=== PATIENT | female | born 1985 | race American Indian/Alaskan Native ===

== ENCOUNTER 2020-06-29 12:39 | Emergency (ER) | payer SELFPAY ==
[2020-06-29 13:11] VITALS: BP 124/73
--- NOTE | 2020-06-29 14:19 | Emergency Department Report ---
ED General Adult HPI - General Chief complaint: Vaginal Bleeding Stated complaint: ABD PAIN/RT LEG PAIN Time Seen by Provider: 06/29/20 13:17 Source: patient Mode of arrival: Ambulatory Limitations: No Limitations - History of Present Illness Initial comments: pt is a 34 yo female who presents to the ED with c/o vaginal bleeding for three weeks. she states she has a hx of irregular menstrual cycles. 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 she denies ever having an abnormal pap smear. she denies any fever, abd pain, back pain, n/v/d, dysuria, abnormal vaginal discharge. she states she has also been having right sided calf pain for a few d ays described as a throbbing. she denies any fall or injury. she denies any CP, SOB, leg swelling, numbness or weakness. no pmhx. no allergies to meds. she endorses tobacco use. - Related Data Previous Rx's Medication Instructions Recorded Last Taken Type Naproxen [EC-Naprosyn] 500 mg PO BID PRN #20 tablet. 06/29/20 Unknown Rx medroxyPROGESTERone ACETATE 10 mg PO QDAY #10 tablet 06/29/20 Unknown Rx [Provera] methOCARBAMOL [Robaxin TAB] 500 mg PO BID PRN #14 tab 06/29/20 Unknown Rx Allergies Allergy/AdvReac Type Severity Reaction Status Date / Time No Known Allergies Allergy Unverified 06/29/20 13:11 ED Review of Systems ROS: Stated complaint: ABD PAIN/RT LEG PAIN Other details as noted in HPI Comment: All other systems reviewed and negative ED Past Medical Hx - Past Medical History Previous Medical History?: No - Surgical History Past Surgical History?: No - Medications Home Medications: Home Medications Medication Instructions Recorded Confirmed Last Taken Type Naproxen [EC-Naprosyn] 500 mg PO BID PRN #20 tablet. 06/29/20 Unknown Rx medroxyPROGESTERone ACETATE 10 mg PO QDAY #10 tablet 06/29/20 Unknown Rx [Provera] methOCARBAMOL [Robaxin TAB] 500 mg PO BID PRN #14 tab 06/29/20 Unknown Rx ED Physical Exam - General Limitations: No Limitations General appearance: alert, in no apparent distress - Head Head exam: Present: atraumatic, normocephalic - Eye Eye exam: Present: normal appearance - ENT ENT exam: Present: mucous membranes moist - Respiratory Respiratory exam: Present: normal lung sounds bilaterally. Absent: respiratory distress, wheezes, rales, rhonchi, stridor, chest wall tenderness, accessory muscle use, decreased breath sounds, prolonged expiratory - Cardiovascular Cardiovascular Exam: Present: regular rate, normal rhythm, normal heart sounds. Absent: systolic murmur, diastolic murmur, rubs, gallop - GI/Abdominal GI/Abdominal exam: Present: soft, normal bowel sounds. Absent: distended, tend erness, guarding, rebound, rigid - Extremities Exam Extremities exam: Present: normal inspection, full ROM, normal capillary refill. Absent: tenderness, pedal edema, joint swelling, calf tenderness - Neurological Exam Neurological exam: Present: alert, oriented X3 - Psychiatric Psychiatric exam: Present: normal affect, normal mood - Skin Skin exam: Present: warm, dry, intact ED Course Vital Signs 06/29/20 13:10 Temperature 98.4 F Pulse Rate 80 Respiratory 16 Rate Blood Pressure 124/73 [Right] O2 Sat by Pulse 98 Oximetry ED Medical Decision Making - Lab Data Result diagrams: 06/29/20 14:34 06/29/20 14:34 Lab Results 06/29/20 06/29/20 06/29/20 Range/Units 14:34 14:34 14:34 WBC 10.5 (4.5-11.0) K/mm3 RBC 4.23 (3.65-5.03) M/mm3 Hgb 13.0 (10.1-14.3) gm/dl Hct 38.2 (30.3-42.9) % MCV 90 (79-97) fl MCH 31 (28-32) pg MCHC 34 (30-34) % RDW 13.1 L (13.2-15.2) % Plt Count 266 (140-440) K/mm3 Lymph % (Auto) 28.1 (13.4-35.0) % Peach % (Auto) 5.8 (0.0-7.3) % Eos % (Auto) 3.5 (0.0-4.3) % Baso % (Auto) 0.8 (0.0-1.8) % Lymph # (Auto) 3.0 (1.2-5.4) K/mm3 Peach # (Auto) 0.6 (0.0-0.8) K/mm3 Eos # (Auto) 0.4 (0.0-0.4) K/mm3 Baso # (Auto) 0.1 (0.0-0.1) K/mm3 Seg Neutrophils % 61.8 (40.0-70.0) % Seg Neutrophils # 6.5 (1.8-7.7) K/mm3 Sodium 141 (137-145) mmol/L Potassium 4.9 (3.6-5.0) mmol/L Chloride 104.7 (98-107) mmol/L Carbon Dioxide 31 H (22-30) mmol/L Anion Gap 10 mmol/L BUN 8 (7-17) mg/dL Creatinine 0.7 (0.6-1.2) mg/dL Estimated GFR > 60 ml/min BUN/Creatinine Ratio 11 % Glucose 95 (65-100) mg/dL Calcium 9.3 (8.4-10.2) mg/dL Total Bilirubin 0.20 (0.1-1.2) mg/dL AST 16 (5-40) units/L ALT 19 (7-56) units/L Alkaline Phosphatase 76 (35-129) units/L Total Protein 6.8 (6.3-8.2) g/dL Albumin 4.4 (3.9-5) g/dL Albumin/Globulin Ratio 1.8 % HCG, Quant < 2 (0-4) mIU/mL - Radiology Data Radiology results: report reviewed Ordering Physician: JEFFERY ROBERSON Date of Service: 06/29/20 Procedure(s): VL venous duplex LE RT Accession Number(s): [id number] cc: JEFFERY ROBERSON DUPLEX DOPPLER LOWER EXTREMITY VEINS, RIGHT INDICATION / CLINICAL INFORMATION: right calf pain. TECHNIQUE: Duplex doppler imaging was performed through the veins of the right lower extremity using venous compression and other maneuvers. COMPARISON: None available. FINDINGS: RIGHT COMMON FEMORAL VEIN: Negative. RIGHT FEMORAL VEIN: Negative. RIGHT POPLITEAL VEIN: Negative. RIGHT CALF VEINS: Negative. ADDITIONAL FINDINGS: None. IMPRESSION: 1. No sonographic evidence for DVT in the right lower extremity. Signer Name: Rohit Limon MD Signed: 06/29/2020 2:37 PM Workstation Name: [id number] Transcribed By: FATMATA Dictated By: Rohit Limon MD Electronically Authenticated By: Rohit Limon MD Signed Date/Time: 06/29/201436 DD/ 36 TD/TT: Cancel - Medical Decision Making pt is a 34 yo female who presents to the ED with c/o vaginal bleeding for three weeks. she states she has a hx of irregular menstrual cycles. 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 she denies ever having an abnormal pap smear. she denies any fever, abd pain, back pain, n/v/d, dysuria, abnormal vaginal discharge. she states she has also been having right sided calf pain for a few days described as a throbbing. she denies any fall or injury. she denies any CP, SOB, leg swelling, numbness or weakness. no pmhx. no allergies to meds. she endorses tobacco use. Vitals are normal. Labs are normal. H&H is normal. hCG quant is less than 2. doppler US RLE: 1. No sonographic evidence for DVT in the right lower extremity. Discussed all results with patient answered q uestions. Discussed the importance of [facility] follow-up and primary care follow- up. Patient's only contraindication to Provera is tobacco use, I discussed that tobacco use and Provera together puts you at a greater risk for VTE, patient is aware of the risk and would like to continue with Provera prescription. Advised patient please take medication as prescribed. do not drive or operate heavy machinery while taking muscle relaxer robaxin. do not smoke tobacco while taking this medication. follow up with a primary care doctor. follow up with an asbestos pipe supervisor. return to the emergency room for any new or worsening symptoms. Critical care attestation.: If time is entered above; I have spent that time in minutes in the direct care of this critically ill patient, excluding procedure time. ED Disposition Clinical Impression: Right calf pain, Abnormal uterine bleeding (AUB) Disposition: TO HOME OR SELFCARE Is pt being admited?: No Does the pt Need Aspirin: No Condition: Stable Instructions: Abnormal Uterine Bleeding, Leg Cramps Additional Instructions: please take medication as prescribed. do not drive or operate heavy machinery while taking muscle relaxer robaxin. do not smoke tobacco while taking this medication. follow up with a primary care doctor. follow up with an asbestos pipe supervisor. return to the emergency room for any new or worsening symptoms. Prescriptions: Naproxen [EC-Naprosyn] 500 mg PO BID PRN #20 tablet. PRN Reason: pain medroxyPROGESTERone ACETATE [Provera] 10 mg PO QDAY #10 tablet methOCARBAMOL [Robaxin TAB] 500 mg PO BID PRN #14 tab PRN Reason: pain Referrals: PRIMARY CAREMD [Primary Care Provider] - 2-3 Days SERGIO SANTOS MD [Staff Physician] - 2-3 Days [facility] [Provider Group] - 2-3 Days RENETTA COOK MD [Staff Physician] - 2-3 Days Time of Disposition: 16:07 Print Language: ITALIAN
--- NOTE | 2020-06-29 14:41 | Vascular Lab Report ---
DUPLEX DOPPLER LOWER EXTREMITY VEINS, RIGHT INDICATION / CLINICAL INFORMATION: right calf pain. TECHNIQUE: Duplex doppler imaging was performed through the veins of the right lower extremity using venous comp ression and other maneuvers. COMPARISON: None available. FINDINGS: RIGHT COMMON FEMORAL VEIN: Negative. RIGHT FEMORAL VEIN: Negative. RIGHT POPLITEAL VEIN: Negative. RIGHT CALF VEINS: Negative. ADDITIONAL FINDINGS: None. IMPRESSION: 1. No sonographic evidence for DVT in the right lower extremity. Signer Name: Rohit Limon MD Signed: 06/29/2020 2:37 PM Workstation Name: [id number]
[2020-06-29 14:55] LABS: Basophils # (Auto) 0.1 K/mm3 (0.0-0.1); Basophils % (Auto) 0.8 % (0.0-1.8); Eosinophils # (Auto) 0.4 K/mm3 (0.0-0.4); Eosinophils % (Auto) 3.5 % (0.0-4.3); Hematocrit 38.2 % (30.3-42.9); Lymphocytes % (Auto) 28.1 % (13.4-35.0); Mean Corpuscular HGB Conc 34 % (30-34); Mean Corpuscular Volume 90 fl (79-97); Monocytes # (Auto) 0.6 K/mm3 (0.0-0.8); Monocytes % (Auto) 5.8 % (0.0-7.3); Platelet Count 266 K/mm3 (140-440); Red Blood Count 4.23 M/mm3 (3.65-5.03); Red Cell Distribution Width 13.1 % (13.2-15.2)
[2020-06-29 15:24] LABS: Alanine Aminotransferase 19 units/L (7-56); Albumin 4.4 g/dL (3.9-5); Blood Urea Nitrogen 8 mg/dL (7-17); Calcium 9.3 mg/dL (8.4-10.2); Hemolysis Index 10
[2020-06-29 15:37] LABS: BUN/Creatinine Ratio 11
== END 2020-06-29 16:21 | disposition home or self-care (01) ==
LOC: ED 12:39
DX: N93.9 Abnormal uterine and vaginal bleeding, unspecified (principal); M79.661 Pain in right lower leg; Z79.899 Other long term (current) drug therapy
CPT/HCPCS: 36415; 80053; 84702; 85025

== ENCOUNTER 2020-08-23 11:14 | Emergency (ER) | payer SELFPAY ==
[2020-08-23 12:03] VITALS: BP 136/88
[2020-08-23] MEDS ORDERED: ACETAMINOPHEN 325 MG TAB PO ONE (12:48)
--- NOTE | 2020-08-23 12:48 | Emergency Department Report ---
ED Extremity Problem HPI - General Chief complaint: Extremity Injury, Lower Stated complaint: LEG RT PAINS Time Seen by Provider: 08/23/20 12:24 Source: patient Mode of arrival: Ambulatory Limitations: No Limitations - History of Present Illness Initial comments: 34-year-old obese female with no significant past history presents to the ER today with complaints of right calf pain, and right upper thigh/right hip pain. Patient states that she has been having right calf pain on and off for few months but has gotten to the point where it is preventing her from sleeping. She describes as a throbbing pain and she states that lately has been bothering her when she walks. She states the right hip/right upper thigh pain started yesterday. She denies any injury to her calf pain for started a few months ago. She states that she has been exercising for the past month but does not recall any specific injury to her calf or hip area. She denies any associated swelling, bruising or erythema. She denies any back pain, tingling, weakness or numbness. She states that she has not seen anybody for her calf pain since it started. She reports no associated chest pain or shortness of breath. She reports a history of tobacco use. She states she used to be on control but is been a couple months since she has taken any. She denies any history of DVT or PE in the past. MD Complaint: extremity pain -: days(s), month(s) - Related Data Previous Rx's Medication Instructions Recorded Last Taken Type medroxyPROGESTERone ACETATE 10 mg PO QDAY #10 tablet 06/29/20 Unknown Rx [Provera] Naproxen [EC-Naprosyn] 500 mg PO BID PRN #20 tablet. 08/23/20 Unknown Rx methOCARBAMOL [Robaxin TAB] 500 mg PO BID PRN #14 tab 08/23/20 Unknown Rx Allergies Allergy/AdvReac Type Severity Reaction Status Date / Time No Known Allergies Allergy Unverified 06/29/20 13:11 ED Review of Systems ROS: Stated complaint: LEG RT PAINS Other details as noted in HPI Comment: All other systems reviewed and negative Constitutional: denies: chills, fever Eyes: denies: eye pain, eye discharge, vision change ENT: denies: ear pain, throat pain Respiratory: denies: cough, shortness of breath, wheezing Cardiovascular: denies: chest pain, palpitations Gastrointestinal: denies: abdominal pain, nausea, vomiting, diarrhea, constipation, hematemesis, hematochezia Musculoskeletal: arthralgia, myalgia. denies: back pain, joint swelling Neurological: denies: headache, weakness, numbness, paresthesias, confusion, abnormal gait Psychiatric: denies: anxiety, depression Hematological/Lymphatic: denies: easy bleeding, easy bruising ED Past Medical Hx - Past Medical History Previous Medical History?: No - Surgical History Past Surgical History?: No - Social History Smoking Status: Never Smoker Substance Use Type: None - Medications Home Medications: Home Medications Medication Instructions Recorded Confirmed Last Taken Type medroxyPROGESTERone ACETATE 10 mg PO QDAY #10 tablet 06/29/20 Unknown Rx [Provera] Naproxen [EC-Naprosyn] 500 mg PO BID PRN #20 tablet. 08/23/20 Unknown Rx methOCARBAMOL [Robaxin TAB] 500 mg PO BID PRN #14 tab 08/23/20 Unknown Rx ED Physical Exam - General Limitations: No Limitations General appearance: alert, in no apparent distress - Head Head exam: Present: atraumatic, normocephalic, normal inspection - Eye Eye exam: Present: normal appearance, PERRL, EOMI Pupils: Present: normal accommodation - Respiratory Respiratory exam: Present: normal lung sounds bilaterally. Absent: respiratory distress - Cardiovascular Cardiovascular Exam: Present: regular rate - Expanded Lower Extremity Exam Right Hip exam: Present: normal inspection, tenderness (There is mild tenderness to the right anterior hip). Absent: full ROM, swelling, abrasion, laceration, ecchymosis, deformity, crepidus, dislocation, erythema, external rotation, internal rotation, shortening Lower Leg exam: Present: normal inspection, full ROM, tenderness (Very mild tenderness to the right calf). Absent: swelling, abrasion, laceration, ecchymosis, deformity, crepidus, dislocation, erythema, palpable cord, Keisha's sign Neuro vascular tendon exam: Present: no vascular compromise Gait: Positive: observed and normal - Back Exam Back exam: Present: normal inspection, full ROM. Absent: tenderness - Neurological Exam Neurological exam: Present: alert, oriented X3, CN II-XII intact, normal gait - Psychiatric Psychiatric exam: Present: normal affect, normal mood - Skin Skin exam: Present: intact ED Course Vital Signs 08/23/20 12:02 Temperature 98.5 F Pulse Rate 79 Respiratory 18 Rate Blood Pressure 136/88 O2 Sat by Pulse 97 Oximetry ED Medical Decision Making - Radiology Data Radiology results: report reviewed Patient: FABY PICKETT MR#: [id number] : 1985 Acct:[id number] Age/Sex: 34 / F ADM Date: 08/23/20 Loc: ED Attending Dr: Ordering Physician: ANA PAULA NICOLE Date of Service: 08/23/20 Procedure(s): VL venous duplex LE RT Accession Number(s): [id number] cc: ANA PAULA NICOLE . VL venous duplex LE RT INDICATION / CLINICAL INFORMATION: calf pain. TECHNIQUE: Duplex doppler imaging was performed using venous compression and other maneuvers. COMPARISON: None available. FINDINGS: No venous thrombosis is identified within the visualized extremity vasculature. ADDITIONAL FINDINGS: None. IMPRESSION: 1. No sonographic evidence for DVT in the visualized right lower extremity vasculature. Signer Name: Jack Guido MD Signed: 08/23/2020 1:44 PM Workstation Name: [id number] Transcribed By: CS Dictated By: Jack Guido MD Electronically Authenticated By: Jack Guido MD Signed Date/Time: 08/23/201343 DD/ 43 TD/TT: Critical care attestation.: If time is entered above; I have spent that time in minutes in the direct care of this critically ill patient, excluding procedure time. ED Disposition Clinical Impression: Leg pain, right Disposition: DC-01 TO HOME OR SELFCARE Is pt being admited?: No Does the pt Need Aspirin: No Condition: Stable Instructions: Muscle Pain, Adult, Joint Pain Additional Instructions: Take the robaxin and the naproxen as prescribed. Follow up with the PCP and lean specialist listed on your d/c instructions for patient especially if your symptoms persist. Return to the ER if your symptoms changes or worsens in any way. Prescriptions: Naproxen [EC-Naprosyn] 500 mg PO BID PRN #20 tablet.dr PRN Reason: pain methOCARBAMOL [Robaxin TAB] 500 mg PO BID PRN #14 tab PRN Reason: pain Referrals: SERGIO SANTOS MD [Staff Physician] - 3-5 Days ANNI WADDELL MD [Staff Physician] - 3-5 Days Time of Disposition: 14:13
--- NOTE | 2020-08-23 13:48 | Vascular Lab Report ---
. VL venous duplex LE RT INDICATION / CLINICAL INFORMATION: calf pain. TECHNIQUE: Duplex doppler imaging was performed using venous compression and other maneuvers. COMPARISON: None available. FINDINGS: No venous thrombosis is identified within the visualized extremity vasculature. ADDITIONAL FINDINGS: None. IMPRESSION: 1. No sonographic evidence for DVT in the visualized right lower extremity vasculature. Signer Name: Jack Guido MD Signed: 08/23/2020 1:44 PM Workstation Name: [id number]
== END 2020-08-23 15:59 | disposition home or self-care (01) ==
LOC: ED 11:14
DX: M79.604 Pain in right leg (principal); Z79.899 Other long term (current) drug therapy
CPT/HCPCS: 82962